=== PATIENT | female | born 1945 | race Caucasian/White ===

== ENCOUNTER 2017-04-11 05:58 | Inpatient (IN) ==
[2017-04-11] MEDS ORDERED: ONDANSETRON 4 MG/2 ML VIAL ONE (06:43)
[2017-04-11] MEDS ORDERED: DILTIAZEM 100 MG VIAL.ADD IV ONE (08:05)
[2017-04-11 10:29] LABS: INR 1.1; PT Patient Result 11.1 SECS; Partial Thromboplastin Time 28.6 SECS (0-40)
[2017-04-11 10:38] LABS: Basophils # 0.1 10*3/uL (0.0-0.2); Basophils % 0.8 % (0.0-0.8); Eosinophils % 0.2 % (0.00-10.9); Hematocrit 37.5 VOL% (35.7-47.0); Hemoglobin 12.5 GM/DL (12.0-16.0); Immature Granulocytes % 0.6 %; Immature Granulocytes Absolute 0.08 #; Lymphocytes # 1.7 10*3/uL (1.4-4.0); Lymphocytes % 12.8 % (21.3-54.2); Mean Corpuscular HGB Conc 33.3 GM/DL (32-36); Mean Corpuscular Hemoglobin 31 PG (27-34); Mean Corpuscular Volume 93.1 FL (87-102); Mean Platelet Volume 10.9 FL (9.6-12.0); Monocytes # 1.2 10*3/uL (0.11-0.8); Neutrophils % 76.6 % (38.7-73.9); Platelet Count 425 T/CUMM (130-400); Red Blood Count 4.03 MC/CUMM (3.8-5.5); Red Cell Distribution Width 13.4 % (9.3-17.3)
[2017-04-11 11:00] LABS: Thyroid Stimulating Hormone 1.25 uIU/ml (0.358-3.74); Troponin I Only 0.167 NG/ML (0.00-0.045)
[2017-04-11 12:36] LABS: Bilirubin,Total 0.7 MG/DL (0.2-1.0); Calcium 9.1 MG/DL (8.5-10.1)
[2017-04-11 12:37] LABS: Albumin 3.1 G/DL (3.4-5.0); Osmolality,Calculated 276.7 MOS/KG (273-304); Potassium 3.5 MMOL/L (3.5-5.1); Total Protein 7.2 G/DL (6.4-8.3)
[2017-04-11] MEDS ORDERED: ONDANSETRON 4 MG/2 ML VIAL IV PRN (14:32)
[2017-04-11] MEDS ORDERED: ACETAMINOPHEN 325 MG TABLET PO PRN (14:32)
[2017-04-11] MEDS: DILTIAZEM INJ 100 MG in SODIUM CHLORIDE 0.9% 100 ML IV SCH (15:27)
[2017-04-11] MEDS ORDERED: DILTIAZEM 50 MG/10 ML VIAL IV ONE (17:24)
[2017-04-11] MEDS: POTASSIUM CHLORIDE 20 MEQ TABLET PO PRN ×2 (19:03→21:33)
[2017-04-11] MEDS: ASCORBIC ACID 500 MG TABLET PO SCH (21:33)
[2017-04-11] MEDS: APIXABAN 5 MG TABLET PO SCH (21:33)
[2017-04-12 04:51] LABS: Basophils # 0.1 10*3/uL (0.0-0.2); Basophils % 0.7 % (0.0-0.8); Eosinophils # 0.1 10*3/uL (0.0-0.87); Eosinophils % 0.6 % (0.00-10.9); Hematocrit 32.1 VOL% (35.7-47.0); Hemoglobin 10.4 GM/DL (12.0-16.0); Immature Granulocytes % 0.6 %; Immature Granulocytes Absolute 0.06 #; Lymphocytes # 1.9 10*3/uL (1.4-4.0); Lymphocytes % 18.7 % (21.3-54.2); Mean Corpuscular HGB Conc 32.4 GM/DL (32-36); Mean Corpuscular Hemoglobin 31 PG (27-34); Mean Corpuscular Volume 95.5 FL (87-102); Mean Platelet Volume 11.1 FL (9.6-12.0); Monocytes # 1.2 10*3/uL (0.11-0.8); Monocytes % 11.5 % (1.7-12.7); Neutrophils # 6.8 10*3/uL (1.4-7.4); Neutrophils % 67.9 % (38.7-73.9); Platelet Count 359 T/CUMM (130-400); Red Blood Count 3.36 MC/CUMM (3.8-5.5); Red Cell Distribution Width 13.6 % (9.3-17.3); White Blood Count 10.1 T/CUMM (4-12)
[2017-04-12 05:36] LABS: Calcium 8.2 MG/DL (8.5-10.1); Magnesium 1.7 MG/DL (1.8-2.4); Osmolality,Calculated 278.4 MOS/KG (273-304); Potassium 4.7 MMOL/L (3.5-5.1); Risk Ratio 3.93; VLDL CHOLESTEROL 13.4 MG/DL
[2017-04-12] MEDS ORDERED: ASPIRIN EC 81 MG TABLET PO SCH (09:00)
[2017-04-12] MEDS ORDERED: FUROSEMIDE 40 MG TABLET PO SCH (09:00)
[2017-04-12] MEDS: ASCORBIC ACID 500 MG TABLET PO SCH ×2 (10:07→22:56)
[2017-04-12] MEDS: METOPROLOL SUCCINATE XL 100 MG TABLET PO SCH (10:07)
[2017-04-12] MEDS: PANTOPRAZOLE 40 MG TABLET PO SCH (10:08)
[2017-04-12] MEDS: APIXABAN 5 MG TABLET PO SCH ×2 (10:08→22:56)
[2017-04-12] MEDS: DILTIAZEM INJ 100 MG in SODIUM CHLORIDE 0.9% 100 ML IV SCH ×2 (10:10→16:40)
[2017-04-12] MEDS ORDERED: DIGOXIN 0.5 MG/2 ML AMP IV ONE (12:29)
[2017-04-12] MEDS: MAGNESIUM CHLORIDE 64 MG TABLET PO SCH ×2 (14:38→22:56)
[2017-04-12] MEDS ORDERED: diphenhydrAMINE CAP 25 MG CAPSULE PO ONE (21:30)
[2017-04-13] MEDS: DILTIAZEM INJ 100 MG in SODIUM CHLORIDE 0.9% 100 ML IV SCH (01:03)
[2017-04-13 06:00] LABS: Basophils # 0.1 10*3/uL (0.0-0.2); Basophils % 0.7 % (0.0-0.8); Eosinophils # 0.1 10*3/uL (0.0-0.87); Eosinophils % 1.1 % (0.00-10.9); Hematocrit 33.4 VOL% (35.7-47.0); Hemoglobin 10.9 GM/DL (12.0-16.0); Immature Granulocytes % 0.6 %; Immature Granulocytes Absolute 0.06 #; Lymphocytes % 18.2 % (21.3-54.2); Mean Corpuscular HGB Conc 32.6 GM/DL (32-36); Mean Corpuscular Hemoglobin 31 PG (27-34); Mean Corpuscular Volume 95.7 FL (87-102); Mean Platelet Volume 11.2 FL (9.6-12.0); Monocytes # 1.5 10*3/uL (0.11-0.8); Monocytes % 13.7 % (1.7-12.7); Neutrophils % 65.7 % (38.7-73.9); Platelet Count 356 T/CUMM (130-400); Red Blood Count 3.49 MC/CUMM (3.8-5.5); Red Cell Distribution Width 13.5 % (9.3-17.3); White Blood Count 10.7 T/CUMM (4-12)
[2017-04-13 06:25] LABS: Calcium 8.7 MG/DL (8.5-10.1); Magnesium 1.7 MG/DL (1.8-2.4); Potassium 4.1 MMOL/L (3.5-5.1)
[2017-04-13] MEDS ORDERED: COLCHICINE 0.6 MG TABLET PO ONE (07:57)
[2017-04-13] MEDS ORDERED: DIGOXIN 0.25 MG TABLET PO SCH ×2 (09:00→13:00)
[2017-04-13] MEDS: ASCORBIC ACID 500 MG TABLET PO SCH (12:13)
[2017-04-13] MEDS: APIXABAN 5 MG TABLET PO SCH (12:14)
[2017-04-13] MEDS: PANTOPRAZOLE 40 MG TABLET PO SCH (12:14)
[2017-04-13] MEDS: METOPROLOL SUCCINATE XL 100 MG TABLET PO SCH (12:15)
[2017-04-13] MEDS: MAGNESIUM CHLORIDE 64 MG TABLET PO SCH (12:15)
[2017-04-13 12:53] VITALS: BP 106/69
[2017-04-13] MEDS ORDERED: COLCHICINE 0.6 MG TABLET PO SCH (21:00)
== END 2017-04-13 14:45 | disposition home or self-care (01) | DRG 308 ==
LOC: N.ED 09:12 → N.EDINP 10:10 → N.TELES 14:05
PROVIDERS: ADMIT Internal Medicine; ATTEND Internal Medicine

== ENCOUNTER 2017-04-27 20:37 | Inpatient (IN) ==
[2017-04-27] MEDS ORDERED: METOCLOPRAMIDE 10 MG/2 ML VIAL IV STA (22:14)
[2017-04-27] MEDS ORDERED: SODIUM CHLORIDE 0.9% 500 ML IV STA (22:14)
[2017-04-27] MEDS ORDERED: ONDANSETRON 4 MG/2 ML VIAL IV STA (22:14)
[2017-04-27] MEDS ORDERED: PANTOPRAZOLE 40 MG VIAL IV STA (22:14)
[2017-04-27 22:20] LABS: Basophils # 0.1 10*3/uL (0.0-0.2); Basophils % 0.5 % (0.0-0.8); Eosinophils # 0.1 10*3/uL (0.0-0.87); Eosinophils % 0.3 % (0.00-10.9); Hematocrit 34.1 VOL% (35.7-47.0); Hemoglobin 11.3 GM/DL (12.0-16.0); Immature Granulocytes Absolute 0.14 #; Lymphocytes # 3.1 10*3/uL (1.4-4.0); Lymphocytes % 21.1 % (21.3-54.2); Mean Corpuscular HGB Conc 33.1 GM/DL (32-36); Mean Corpuscular Hemoglobin 30 PG (27-34); Mean Corpuscular Volume 91.2 FL (87-102); Mean Platelet Volume 12.3 FL (9.6-12.0); Monocytes % 13.7 % (1.7-12.7); Neutrophils # 9.3 10*3/uL (1.4-7.4); Neutrophils % 63.4 % (38.7-73.9); Platelet Count 418 T/CUMM (130-400); Red Blood Count 3.74 MC/CUMM (3.8-5.5); Red Cell Distribution Width 13.7 % (9.3-17.3); White Blood Count 14.7 T/CUMM (4-12)
[2017-04-27] MEDS ORDERED: ONDANSETRON 4 MG/2 ML VIAL ONE (22:20)
[2017-04-27] MEDS ORDERED: METOCLOPRAMIDE 10 MG/2 ML VIAL ONE (22:20)
[2017-04-27] MEDS ORDERED: PANTOPRAZOLE 40 MG VIAL IV ONE (22:20)
[2017-04-27 22:42] LABS: Albumin 2.9 G/DL (3.4-5.0); Bilirubin,Total 0.9 MG/DL (0.2-1.0); Calcium 9.1 MG/DL (8.5-10.1); Magnesium 1.4 MG/DL (1.8-2.4); Osmolality,Calculated 276.8 MOS/KG (273-304); Potassium 3.7 MMOL/L (3.5-5.1); Troponin I Only 0.04 NG/ML (0.00-0.045)
[2017-04-27] MEDS ORDERED: MAGNESIUM SULF RIDER 2 GM in PREMIX 1 EACH IV STA (22:52)
[2017-04-27 23:45] LABS: Apearance,Urine Slightly Hazy (Clear); Bacteria,Urine Many /HPF (Few); Bilirubin,Urine Negative (Negative); Blood, Urine Negative (Negative); Glucose,Urine (UA) Negative (Negative); Hyaline Casts,Urine 48 /LPF (0-3); Ketones,Urine 20 mg/dL (Negative); Mucus,Urine Few /LPF (Occasional); Nitrite,Urine Negative (Negative); Protein,Urine 100 MG/DL; RBC,Urine 3 /HPF (0-4); Squamous Epithelial Cell,Urine Occasional /HPF (0-10); Urine Color Amber (Yellow); Urine Specific Gravity 1.017 (1.001-1.035); WBC,Urine 3 /HPF (0-6)
[2017-04-27] MEDS ORDERED: MAGNESIUM SULF RIDER 50 ML IV ONE (23:48)
[2017-04-28] MEDS ORDERED: SODIUM CHLORIDE 0.9% 1,000 ML IV SCH (01:54)
[2017-04-28] MEDS ORDERED: ACETAMINOPHEN 325 MG TABLET PO PRN (01:54)
[2017-04-28] MEDS: SCOPOLAMINE 1.5 MG PATCH TRANSDERM SCH ×2 (02:09→11:20)
[2017-04-28 07:36] LABS: Basophils # 0.1 10*3/uL (0.0-0.2); Basophils % 0.5 % (0.0-0.8); Eosinophils # 0.1 10*3/uL (0.0-0.87); Eosinophils % 0.9 % (0.00-10.9); Hematocrit 31.3 VOL% (35.7-47.0); Hemoglobin 10.1 GM/DL (12.0-16.0); Immature Granulocytes % 0.9 %; Immature Granulocytes Absolute 0.11 #; Lymphocytes % 23.3 % (21.3-54.2); Mean Corpuscular HGB Conc 32.3 GM/DL (32-36); Mean Corpuscular Hemoglobin 30 PG (27-34); Mean Corpuscular Volume 92.3 FL (87-102); Mean Platelet Volume 11.4 FL (9.6-12.0); Monocytes # 1.8 10*3/uL (0.11-0.8); Monocytes % 14.2 % (1.7-12.7); Neutrophils # 7.6 10*3/uL (1.4-7.4); Neutrophils % 60.2 % (38.7-73.9); Platelet Count 388 T/CUMM (130-400); Red Blood Count 3.39 MC/CUMM (3.8-5.5); Red Cell Distribution Width 13.8 % (9.3-17.3); White Blood Count 12.7 T/CUMM (4-12)
[2017-04-28 08:06] LABS: Albumin 2.7 G/DL (3.4-5.0); Bilirubin,Total 1.1 MG/DL (0.2-1.0); Magnesium 2.1 MG/DL (1.8-2.4); Osmolality,Calculated 279.5 MOS/KG (273-304); Potassium 3.9 MMOL/L (3.5-5.1); Total Protein 6.2 G/DL (6.4-8.3)
[2017-04-28] MEDS: SODIUM CHLORIDE 0.9% 1,000 ML IV SCH ×2 (08:29→21:38)
[2017-04-28] MEDS: INDOMETHACIN 50 MG CAPSULE PO SCH ×3 (08:29→21:37)
[2017-04-28] MEDS: ONDANSETRON 4 MG/2 ML VIAL IV PRN (08:29)
[2017-04-28] MEDS ORDERED: PANTOPRAZOLE 40 MG TABLET PO SCH (09:00)
[2017-04-28] MEDS ORDERED: ENOXAPARIN 40 MG/0.4 ML SYRINGE SUBCUT SCH (09:00)
[2017-04-28] MEDS ORDERED: FUROSEMIDE 40 MG TABLET PO SCH (09:00)
[2017-04-28] MEDS: MAGNESIUM CHLORIDE 64 MG TABLET PO SCH ×2 (11:20→21:35)
[2017-04-28] MEDS: MEGESTROL 400 MG/10 ML UDCUP PO SCH ×2 (11:20→21:35)
[2017-04-28] MEDS: COLCHICINE 0.6 MG TABLET PO SCH ×2 (11:20→21:36)
[2017-04-28] MEDS: ASCORBIC ACID 500 MG TABLET PO SCH ×2 (11:20→21:36)
[2017-04-28] MEDS: APIXABAN 5 MG TABLET PO SCH ×2 (11:20→21:36)
[2017-04-28] MEDS: PANTOPRAZOLE 40 MG TABLET PO SCH (11:20)
[2017-04-28] MEDS: METOPROLOL SUCCINATE XL 100 MG TABLET PO SCH (11:20)
[2017-04-28] MEDS: DIGOXIN 0.25 MG TABLET PO SCH (15:46)
[2017-04-29 04:49] LABS: Basophils # 0.1 10*3/uL (0.0-0.2); Basophils % 0.6 % (0.0-0.8); Eosinophils # 0.2 10*3/uL (0.0-0.87); Eosinophils % 1.9 % (0.00-10.9); Hematocrit 28.3 VOL% (35.7-47.0); Hemoglobin 9.2 GM/DL (12.0-16.0); Immature Granulocytes % 0.9 %; Immature Granulocytes Absolute 0.09 #; Lymphocytes # 2.2 10*3/uL (1.4-4.0); Lymphocytes % 22.1 % (21.3-54.2); Mean Corpuscular HGB Conc 32.5 GM/DL (32-36); Mean Corpuscular Hemoglobin 30 PG (27-34); Mean Corpuscular Volume 91.6 FL (87-102); Mean Platelet Volume 11.6 FL (9.6-12.0); Monocytes # 1.5 10*3/uL (0.11-0.8); Monocytes % 15.4 % (1.7-12.7); Neutrophils # 5.8 10*3/uL (1.4-7.4); Neutrophils % 59.1 % (38.7-73.9); Platelet Count 335 T/CUMM (130-400); Red Blood Count 3.09 MC/CUMM (3.8-5.5); Red Cell Distribution Width 13.5 % (9.3-17.3); White Blood Count 9.9 T/CUMM (4-12)
[2017-04-29 05:07] LABS: Osmolality,Calculated 283.1 MOS/KG (273-304); Potassium 3.6 MMOL/L (3.5-5.1)
[2017-04-29] MEDS: SODIUM CHLORIDE 0.9% 1,000 ML IV SCH ×3 (05:31→21:13)
[2017-04-29] MEDS: APIXABAN 5 MG TABLET PO SCH ×2 (08:47→21:09)
[2017-04-29] MEDS: PANTOPRAZOLE 40 MG TABLET PO SCH (08:47)
[2017-04-29] MEDS: ASCORBIC ACID 500 MG TABLET PO SCH ×2 (08:47→21:11)
[2017-04-29] MEDS: METOPROLOL SUCCINATE XL 100 MG TABLET PO SCH (08:47)
[2017-04-29] MEDS: MAGNESIUM CHLORIDE 64 MG TABLET PO SCH ×2 (08:47→21:10)
[2017-04-29] MEDS: COLCHICINE 0.6 MG TABLET PO SCH ×2 (08:47→21:10)
[2017-04-29] MEDS: MEGESTROL 400 MG/10 ML UDCUP PO SCH ×2 (08:47→21:14)
[2017-04-29] MEDS: amLODIPine 2.5 MG TABLET PO SCH (08:47)
[2017-04-29] MEDS: ONDANSETRON 4 MG/2 ML VIAL IV PRN ×2 (09:20→22:15)
[2017-04-29] MEDS: DIGOXIN 0.25 MG TABLET PO SCH (15:39)
[2017-04-29] MEDS: traMADol 50 MG TABLET PO PRN (22:14)
[2017-04-29] MEDS: GABAPENTIN 100 MG CAPSULE PO PRN (22:15)
[2017-04-30 03:17] LABS: Basophils # 0.1 10*3/uL (0.0-0.2); Basophils % 0.7 % (0.0-0.8); Eosinophils # 0.4 10*3/uL (0.0-0.87); Eosinophils % 4.1 % (0.00-10.9); Hematocrit 28.4 VOL% (35.7-47.0); Hemoglobin 9.1 GM/DL (12.0-16.0); Immature Granulocytes % 0.9 %; Lymphocytes # 2.5 10*3/uL (1.4-4.0); Lymphocytes % 22.8 % (21.3-54.2); Mean Corpuscular Hemoglobin 30 PG (27-34); Mean Corpuscular Volume 92.2 FL (87-102); Mean Platelet Volume 11.7 FL (9.6-12.0); Monocytes # 1.7 10*3/uL (0.11-0.8); Monocytes % 15.4 % (1.7-12.7); Neutrophils % 56.1 % (38.7-73.9); Platelet Count 328 T/CUMM (130-400); Red Blood Count 3.08 MC/CUMM (3.8-5.5); Red Cell Distribution Width 13.8 % (9.3-17.3); White Blood Count 10.7 T/CUMM (4-12)
[2017-04-30 03:44] LABS: Calcium 7.9 MG/DL (8.5-10.1); Potassium 3.3 MMOL/L (3.5-5.1)
[2017-04-30] MEDS: SODIUM CHLORIDE 0.9% 1,000 ML IV SCH ×3 (04:28→22:02)
[2017-04-30] MEDS ORDERED: POTASSIUM CHLORIDE 20 MEQ/15 ML UDCUP PO SCH (09:00)
[2017-04-30] MEDS: MEGESTROL 400 MG/10 ML UDCUP PO SCH ×2 (12:24→22:04)
[2017-04-30] MEDS: MAGNESIUM CHLORIDE 64 MG TABLET PO SCH ×2 (12:26→22:01)
[2017-04-30] MEDS: ASCORBIC ACID 500 MG TABLET PO SCH ×2 (12:26→22:01)
[2017-04-30] MEDS: APIXABAN 5 MG TABLET PO SCH ×2 (12:27→22:00)
[2017-04-30] MEDS: amLODIPine 2.5 MG TABLET PO SCH (12:27)
[2017-04-30] MEDS: PANTOPRAZOLE 40 MG TABLET PO SCH ×2 (12:27→22:00)
[2017-04-30] MEDS: COLCHICINE 0.6 MG TABLET PO SCH ×2 (12:27→22:00)
[2017-04-30] MEDS: METOPROLOL SUCCINATE XL 100 MG TABLET PO SCH (12:27)
[2017-04-30] MEDS: DIGOXIN 0.25 MG TABLET PO SCH (13:41)
[2017-04-30] MEDS: GABAPENTIN 100 MG CAPSULE PO PRN (21:58)
[2017-04-30] MEDS: traMADol 50 MG TABLET PO PRN (21:59)
[2017-04-30] MEDS: ONDANSETRON 4 MG/2 ML VIAL IV PRN (22:21)
[2017-05-01] MEDS: SODIUM CHLORIDE 0.9% 1,000 ML IV SCH ×3 (03:59→19:25)
[2017-05-01 07:16] LABS: Calcium 8.1 MG/DL (8.5-10.1); Osmolality,Calculated 283.7 MOS/KG (273-304); Potassium 3.6 MMOL/L (3.5-5.1)
[2017-05-01] MEDS: PANTOPRAZOLE 40 MG TABLET PO SCH ×2 (08:51→21:29)
[2017-05-01] MEDS: MAGNESIUM CHLORIDE 64 MG TABLET PO SCH ×2 (08:51→21:28)
[2017-05-01] MEDS: METOPROLOL SUCCINATE XL 100 MG TABLET PO SCH (08:51)
[2017-05-01] MEDS: SCOPOLAMINE 1.5 MG PATCH TRANSDERM SCH (08:51)
[2017-05-01] MEDS: APIXABAN 5 MG TABLET PO SCH ×2 (08:51→21:27)
[2017-05-01] MEDS: ASCORBIC ACID 500 MG TABLET PO SCH ×2 (08:51→21:30)
[2017-05-01] MEDS: POTASSIUM CHLORIDE 20 MEQ/15 ML UDCUP PO SCH (08:51)
[2017-05-01] MEDS: MEGESTROL 400 MG/10 ML UDCUP PO SCH ×2 (08:51→21:29)
[2017-05-01] MEDS: COLCHICINE 0.6 MG TABLET PO SCH ×2 (08:51→21:28)
[2017-05-01] MEDS ORDERED: amLODIPine 5 MG TABLET PO SCH (09:00)
[2017-05-01] MEDS: DIGOXIN 0.25 MG TABLET PO SCH (14:45)
[2017-05-01] MEDS: GABAPENTIN 100 MG CAPSULE PO PRN (21:28)
[2017-05-01] MEDS: traMADol 50 MG TABLET PO PRN (21:29)
[2017-05-02] MEDS: SODIUM CHLORIDE 0.9% 1,000 ML IV SCH (03:48)
[2017-05-02 05:26] LABS: Basophils # 0.1 10*3/uL (0.0-0.2); Basophils % 0.8 % (0.0-0.8); Eosinophils # 0.3 10*3/uL (0.0-0.87); Eosinophils % 3.3 % (0.00-10.9); Hematocrit 30.1 VOL% (35.7-47.0); Hemoglobin 9.9 GM/DL (12.0-16.0); Immature Granulocytes % 0.9 %; Immature Granulocytes Absolute 0.08 #; Lymphocytes # 2.3 10*3/uL (1.4-4.0); Lymphocytes % 27.2 % (21.3-54.2); Mean Corpuscular HGB Conc 32.9 GM/DL (32-36); Mean Corpuscular Hemoglobin 30 PG (27-34); Mean Corpuscular Volume 90.7 FL (87-102); Mean Platelet Volume 11.2 FL (9.6-12.0); Monocytes # 1.4 10*3/uL (0.11-0.8); Monocytes % 15.8 % (1.7-12.7); Neutrophils # 4.4 10*3/uL (1.4-7.4); Platelet Count 313 T/CUMM (130-400); Red Blood Count 3.32 MC/CUMM (3.8-5.5); Red Cell Distribution Width 14.5 % (9.3-17.3); White Blood Count 8.5 T/CUMM (4-12)
[2017-05-02 05:48] LABS: Band Neutrophils 1 % (0-10); Eosinophils 1 % (0-10); Lymphocytes 33 % (20-55); Platelet Estimate Normal; Segmented Neutrophils 52 % (50-85); Total Cells Counted 100
[2017-05-02 05:53] LABS: Calcium 8.2 MG/DL (8.5-10.1); Osmolality,Calculated 286.6 MOS/KG (273-304); Potassium 3.7 MMOL/L (3.5-5.1)
[2017-05-02] MEDS ORDERED: amLODIPine 10 MG TABLET PO SCH (09:00)
[2017-05-02] MEDS ORDERED: LIDOCAINE 2% 5 ML VIAL ONE (10:49)
[2017-05-02] MEDS ORDERED: PROPOFOL 200 MG/20 ML VIAL IV ONE (10:49)
[2017-05-02 13:18] VITALS: BP 156/82
[2017-05-02] MEDS: PANTOPRAZOLE 40 MG TABLET PO SCH (13:20)
[2017-05-02] MEDS: MEGESTROL 400 MG/10 ML UDCUP PO SCH (13:20)
[2017-05-02] MEDS: MAGNESIUM CHLORIDE 64 MG TABLET PO SCH (13:20)
[2017-05-02] MEDS: COLCHICINE 0.6 MG TABLET PO SCH (13:20)
[2017-05-02] MEDS: APIXABAN 5 MG TABLET PO SCH (13:20)
[2017-05-02] MEDS: POTASSIUM CHLORIDE 20 MEQ/15 ML UDCUP PO SCH (13:20)
[2017-05-02] MEDS: ASCORBIC ACID 500 MG TABLET PO SCH (13:21)
[2017-05-02] MEDS: METOPROLOL SUCCINATE XL 100 MG TABLET PO SCH (13:21)
[2017-05-02] MEDS: DIGOXIN 0.25 MG TABLET PO SCH (14:52)
[2017-05-02] MEDS ORDERED: METOPROLOL SUCCINATE XL 50 MG TABLET PO SCH (19:00)
== END 2017-05-02 15:10 | disposition home or self-care (01) | DRG 392 ==
LOC: N.EDINP 20:37 → N.ED 20:37 → N.5E 04-28 01:30

== ENCOUNTER 2020-07-07 08:00 | Inpatient (IN) ==
[~2020-07-07 08:00] MED LIST: ACETAMINOPHEN 325 MG TABLET PO PRN; ALUMINUM/MAGNES/SIMETH MAX STR 30 ML UDCUP PO PRN; BISACODYL 5 MG TABLET PO PRN; MAGNESIUM SULF RIDER 2 GM in PREMIX 1 EACH IV PRN; MAGNESIUM SULF RIDER 4 GM in PREMIX 1 EACH IV PRN; ONDANSETRON 4 MG/2 ML VIAL IV PRN; POTASSIUM CHLORIDE 20 MEQ TABLET PO PRN; ZALEPLON 5 MG CAPSULE PO PRN; hydrALAZINE 20 MG/1 ML VIAL IV PRN
[2020-07-07] MEDS ORDERED: DILTIAZEM CD 180 MG CAPSULE PO SCH (09:00)
[2020-07-07] MEDS: FLECAINIDE 50 MG TABLET PO SCH ×2 (11:21→21:23)
[2020-07-07] MEDS: FUROSEMIDE 20 MG TABLET PO SCH ×2 (11:29→15:55)
[2020-07-07] MEDS: LOSARTAN 50 MG TABLET PO SCH ×2 (11:29→21:20)
[2020-07-07] MEDS: APIXABAN 5 MG TABLET PO SCH ×2 (11:29→21:23)
[2020-07-07] MEDS: PANTOPRAZOLE 40 MG TABLET PO SCH (11:29)
[2020-07-07] MEDS: METOPROLOL SUCCINATE XL 25 MG TABLET PO SCH (11:30)
[2020-07-07 12:17] LABS: Alanine Aminotransferase 21 U/L (13-56); Albumin 3.5 G/DL (3.4-5.0); Alkaline Phosphatase 124 U/L (45-117); Aspartate Amino Transferase 13 U/L (0-37); Bilirubin,Total < 0.39 MG/DL (0.2-1.0); Blood Urea Nitrogen 31 MG/DL (7-18); Calcium 8.8 MG/DL (8.5-10.1); Carbon Dioxide 27 MMOL/L (21-32); Estimated Glom Filtration Rate 42 ML/MIN; Glucose 105 MG/DL (74-106); Osmolality,Calculated 292.8 MOS/KG (273-304); Potassium 4.2 MMOL/L (3.5-5.1); Sodium 144 MMOL/L (136-145); Total Protein 7.3 G/DL (6.4-8.3)
[2020-07-07 12:18] LABS: Basophils # 0.1 10*3/uL (0.0-0.2); Basophils % 0.6 % (0.0-0.8); Eosinophils # 0.4 10*3/uL (0.0-0.87); Eosinophils % 3.5 % (0.00-10.9); Hematocrit 35.7 VOL% (35.7-47.0); Hemoglobin 10.9 GM/DL (12.0-16.0); Immature Granulocytes % 0.4 %; Immature Granulocytes Absolute 0.04 #; Lymphocytes # 2.8 10*3/uL (1.4-4.0); Mean Corpuscular HGB Conc 30.5 GM/DL (32-36); Mean Corpuscular Volume 92.5 FL (87-102); Mean Platelet Volume 11.8 FL (9.6-12.0); Monocytes % 9.5 % (1.7-12.7); Platelet Count 286 T/CUMM (130-400); Red Blood Count 3.86 MC/CUMM (3.8-5.5); Red Cell Distribution Width 15.2 % (9.3-17.3); White Blood Count 10.3 T/CUMM (4-12)
[2020-07-07] MEDS ORDERED: HydrOXYzine PAMOATE 25 MG CAPSULE PO PRN (13:13)
[2020-07-07] MEDS ORDERED: MELATONIN 3 MG TABLET PO PRN (13:32)
[2020-07-07] MEDS: DOXAZOSIN 1 MG TABLET PO SCH (21:23)
[2020-07-08 05:43] LABS: Basophils # 0.1 10*3/uL (0.0-0.2); Basophils % 0.6 % (0.0-0.8); Eosinophils # 0.5 10*3/uL (0.0-0.87); Eosinophils % 5.8 % (0.00-10.9); Hematocrit 31.9 VOL% (35.7-47.0); Hemoglobin 9.8 GM/DL (12.0-16.0); Immature Granulocytes % 0.4 %; Immature Granulocytes Absolute 0.03 #; Lymphocytes # 2.4 10*3/uL (1.4-4.0); Lymphocytes % 30.4 % (21.3-54.2); Mean Corpuscular HGB Conc 30.7 GM/DL (32-36); Mean Corpuscular Volume 91.4 FL (87-102); Mean Platelet Volume 12.2 FL (9.6-12.0); Monocytes % 10.8 % (1.7-12.7); Platelet Count 252 T/CUMM (130-400); Red Blood Count 3.49 MC/CUMM (3.8-5.5); Red Cell Distribution Width 15.2 % (9.3-17.3); White Blood Count 7.9 T/CUMM (4-12)
[2020-07-08 06:01] LABS: Calcium 8.9 MG/DL (8.5-10.1); Osmolality,Calculated 289.1 MOS/KG (273-304); Potassium 4.3 MMOL/L (3.5-5.1)
[2020-07-08] MEDS: FUROSEMIDE 20 MG TABLET PO SCH ×2 (08:57→15:39)
[2020-07-08] MEDS: FLECAINIDE 50 MG TABLET PO SCH ×2 (08:57→22:10)
[2020-07-08] MEDS: METOPROLOL SUCCINATE XL 25 MG TABLET PO SCH (08:58)
[2020-07-08] MEDS: APIXABAN 5 MG TABLET PO SCH ×2 (08:58→22:09)
[2020-07-08] MEDS: PANTOPRAZOLE 40 MG TABLET PO SCH (08:58)
[2020-07-08] MEDS: LOSARTAN 50 MG TABLET PO SCH ×2 (08:58→22:10)
[2020-07-08] MEDS ORDERED: DILTIAZEM CD 180 MG CAPSULE PO SCH (09:00)
[2020-07-08] MEDS: DOXAZOSIN 1 MG TABLET PO SCH (22:09)
[2020-07-09] MEDS: FLECAINIDE 50 MG TABLET PO SCH (08:04)
[2020-07-09] MEDS: PANTOPRAZOLE 40 MG TABLET PO SCH (08:04)
[2020-07-09] MEDS: METOPROLOL SUCCINATE XL 25 MG TABLET PO SCH (08:04)
[2020-07-09] MEDS: LOSARTAN 50 MG TABLET PO SCH (08:04)
[2020-07-09] MEDS: APIXABAN 5 MG TABLET PO SCH (08:04)
[2020-07-09] MEDS: FUROSEMIDE 20 MG TABLET PO SCH (08:04)
[2020-07-09] MEDS ORDERED: DILTIAZEM CD 240 MG CAPSULE PO SCH (09:00)
[2020-07-09 11:59] VITALS: BP 102/48
== END 2020-07-09 13:18 | disposition home or self-care (01) | DRG 310 ==
LOC: N.TELEN
PROVIDERS: ADMIT Internal Medicine Interventional Cardiology; ATTEND Internal Medicine Interventional Cardiology

== ENCOUNTER 2020-10-04 22:28 | Inpatient (IN) ==
[2020-10-04] MEDS ORDERED: ASPIRIN 325 MG TABLET PO STA (23:08)
[2020-10-04 23:15] LABS: Basophils # 0.1 10*3/uL (0.0-0.2); Basophils % 0.7 % (0.0-0.8); Eosinophils # 0.4 10*3/uL (0.0-0.87); Hematocrit 31.7 VOL% (35.7-47.0); Hemoglobin 9.9 GM/DL (12.0-16.0); Immature Granulocytes % 0.6 %; Immature Granulocytes Absolute 0.07 #; Lymphocytes # 2.7 10*3/uL (1.4-4.0); Lymphocytes % 25.1 % (21.3-54.2); Mean Corpuscular HGB Conc 31.2 GM/DL (32-36); Mean Corpuscular Volume 90.3 FL (87-102); Mean Platelet Volume 10.8 FL (9.6-12.0); Monocytes % 9.5 % (1.7-12.7); Neutrophils % 60.1 % (38.7-73.9); Platelet Count 337 T/CUMM (130-400); Red Blood Count 3.51 MC/CUMM (3.8-5.5); Red Cell Distribution Width 15.3 % (9.3-17.3); White Blood Count 10.9 T/CUMM (4-12)
[2020-10-04 23:35] LABS: Alanine Aminotransferase 15 U/L (13-56); Albumin 3.3 G/DL (3.4-5.0); Alkaline Phosphatase 120 U/L (45-117); Aspartate Amino Transferase 15 U/L (0-37); Bilirubin,Total < 0.39 MG/DL (0.2-1.0); Blood Urea Nitrogen 33 MG/DL (7-18); Calcium 8.9 MG/DL (8.5-10.1); Carbon Dioxide 28 MMOL/L (21-32); Estimated Glom Filtration Rate 38 ML/MIN; Glucose 103 MG/DL (74-106); Osmolality,Calculated 283.5 MOS/KG (273-304); Potassium 4.4 MMOL/L (3.5-5.1); Sodium 139 MMOL/L (136-145); Total Protein 7.2 G/DL (6.4-8.2)
[2020-10-04] MEDS ORDERED: SODIUM CHLORIDE 0.9% 500 ML IV STA (23:53)
[2020-10-05] MEDS ORDERED: DEXTROSE 50% 25 GM/50 ML VIAL IV PRN (00:29)
[2020-10-05] MEDS ORDERED: GLUCAGON 1 MG VIAL IM PRN (00:29)
[2020-10-05] MEDS ORDERED: DOCUSATE SODIUM 100 MG CAPSULE PO PRN ×2 (00:29→07:27)
[2020-10-05] MEDS ORDERED: ONDANSETRON 4 MG/2 ML VIAL IV PRN (00:29)
[2020-10-05] MEDS ORDERED: ACETAMINOPHEN 325 MG TABLET PO PRN (00:29)
[2020-10-05 06:39] LABS: Basophils # 0.1 10*3/uL (0.0-0.2); Basophils % 0.7 % (0.0-0.8); Eosinophils # 0.4 10*3/uL (0.0-0.87); Hematocrit 29.6 VOL% (35.7-47.0); Hemoglobin 9.1 GM/DL (12.0-16.0); Immature Granulocytes % 0.5 %; Immature Granulocytes Absolute 0.04 #; Lymphocytes # 2.3 10*3/uL (1.4-4.0); Lymphocytes % 30.4 % (21.3-54.2); Mean Corpuscular HGB Conc 30.7 GM/DL (32-36); Mean Platelet Volume 10.5 FL (9.6-12.0); Monocytes % 11.6 % (1.7-12.7); Neutrophils % 51.8 % (38.7-73.9); Platelet Count 283 T/CUMM (130-400); Red Blood Count 3.29 MC/CUMM (3.8-5.5); Red Cell Distribution Width 15.3 % (9.3-17.3); White Blood Count 7.4 T/CUMM (4-12)
[2020-10-05 06:59] LABS: Hypochromasia 1+; Microcytosis 1+; Platelet Estimate Adequate
[2020-10-05 07:04] LABS: Calcium 8.6 MG/DL (8.5-10.1); Osmolality,Calculated 287.3 MOS/KG (273-304)
[2020-10-05 07:26] LABS: Risk Ratio 3.24; VLDL CHOLESTEROL 12.2 MG/DL
[2020-10-05] MEDS ORDERED: PANTOPRAZOLE 40 MG TABLET PO PRN (07:27)
[2020-10-05] MEDS ORDERED: HydrOXYzine PAMOATE 25 MG CAPSULE PO PRN (08:54)
[2020-10-05] MEDS ORDERED: DOXAZOSIN 1 MG TABLET PO SCH (09:00)
[2020-10-05] MEDS ORDERED: APIXABAN 5 MG TABLET PO SCH (09:00)
[2020-10-05] MEDS: ASCORBIC ACID 500 MG TABLET PO SCH ×2 (09:54→22:30)
[2020-10-05] MEDS: LOSARTAN 50 MG TABLET PO SCH ×2 (09:54→22:30)
[2020-10-05] MEDS: METOPROLOL SUCCINATE XL 25 MG TABLET PO SCH (09:54)
[2020-10-05] MEDS: FLECAINIDE 50 MG TABLET PO SCH ×2 (09:54→22:30)
[2020-10-05] MEDS ORDERED: FUROSEMIDE 20 MG TABLET PO SCH (16:00)
[2020-10-06 05:48] LABS: Basophils # 0.1 10*3/uL (0.0-0.2); Basophils % 0.7 % (0.0-0.8); Eosinophils # 0.4 10*3/uL (0.0-0.87); Eosinophils % 4.4 % (0.00-10.9); Hematocrit 33.1 VOL% (35.7-47.0); Hemoglobin 10.1 GM/DL (12.0-16.0); Immature Granulocytes % 0.6 %; Immature Granulocytes Absolute 0.06 #; Lymphocytes % 20.4 % (21.3-54.2); Mean Corpuscular HGB Conc 30.5 GM/DL (32-36); Mean Corpuscular Volume 90.4 FL (87-102); Mean Platelet Volume 10.4 FL (9.6-12.0); Monocytes % 10.4 % (1.7-12.7); Neutrophils % 63.5 % (38.7-73.9); Platelet Count 325 T/CUMM (130-400); Red Blood Count 3.66 MC/CUMM (3.8-5.5); Red Cell Distribution Width 15.1 % (9.3-17.3); White Blood Count 9.8 T/CUMM (4-12)
[2020-10-06 06:01] LABS: Calcium 9.1 MG/DL (8.5-10.1); Osmolality,Calculated 284.1 MOS/KG (273-304); Potassium 4.3 MMOL/L (3.5-5.1)
[2020-10-06] MEDS ORDERED: ceFAZolin 1,000 MG VIAL IRRIG ONE (07:30)
[2020-10-06] MEDS ORDERED: diphenhydrAMINE CAP 25 MG CAPSULE PO ONE (07:30)
[2020-10-06] MEDS ORDERED: DIAZEPAM 5 MG TABLET PO ONE (07:30)
[2020-10-06] MEDS: ASCORBIC ACID 500 MG TABLET PO SCH ×2 (08:29→21:32)
[2020-10-06] MEDS: LOSARTAN 50 MG TABLET PO SCH ×2 (08:29→21:32)
[2020-10-06] MEDS: PANTOPRAZOLE 40 MG TABLET PO SCH ×2 (08:29→08:36)
[2020-10-06] MEDS: METOPROLOL SUCCINATE XL 25 MG TABLET PO SCH (08:29)
[2020-10-06] MEDS: FLECAINIDE 50 MG TABLET PO SCH ×2 (08:29→21:32)
[2020-10-06] MEDS ORDERED: MIDAZOLAM 2 MG/2 ML VIAL ONE ×2 (08:55→10:07)
[2020-10-06] MEDS ORDERED: LIDOCAINE 1%/EPI INJ 20 ML VIAL ONE (08:55)
[2020-10-06] MEDS ORDERED: fentaNYL 100 MCG/2 ML VIAL ONE (08:55)
[2020-10-06] MEDS ORDERED: ceFAZolin 1,000 MG VIAL ONE (08:56)
[2020-10-06] MEDS ORDERED: HEPARIN/NACL 0.9% 2 UNITS/ML 1,000 UNIT/500 ML BAG IV ONE (08:56)
[2020-10-06] MEDS ORDERED: DOXAZOSIN 2 MG TABLET PO SCH (09:00)
[2020-10-06] MEDS ORDERED: IBUPROFEN 400 MG TABLET PO PRN (10:51)
[2020-10-06] MEDS: DOXAZOSIN 1 MG TABLET PO SCH (11:25)
[2020-10-07 05:21] LABS: Basophils % 0.5 % (0.0-0.8); Eosinophils # 0.6 10*3/uL (0.0-0.87); Eosinophils % 7.7 % (0.00-10.9); Hematocrit 33.4 VOL% (35.7-47.0); Hemoglobin 10.4 GM/DL (12.0-16.0); Immature Granulocytes % 0.5 %; Immature Granulocytes Absolute 0.04 #; Lymphocytes # 1.5 10*3/uL (1.4-4.0); Lymphocytes % 20.1 % (21.3-54.2); Mean Corpuscular HGB Conc 31.1 GM/DL (32-36); Mean Corpuscular Volume 91.3 FL (87-102); Mean Platelet Volume 10.4 FL (9.6-12.0); Monocytes % 10.9 % (1.7-12.7); Neutrophils % 60.3 % (38.7-73.9); Platelet Count 294 T/CUMM (130-400); Red Blood Count 3.66 MC/CUMM (3.8-5.5); Red Cell Distribution Width 15.1 % (9.3-17.3); White Blood Count 7.5 T/CUMM (4-12)
[2020-10-07 05:36] LABS: Calcium 8.4 MG/DL (8.5-10.1); Potassium 4.4 MMOL/L (3.5-5.1)
[2020-10-07 05:43] LABS: Calcium 8.4 MG/DL (8.5-10.1); Potassium 4.6 MMOL/L (3.5-5.1)
[2020-10-07 08:04] VITALS: BP 120/43
[2020-10-07] MEDS: FLECAINIDE 50 MG TABLET PO SCH (08:51)
[2020-10-07] MEDS: PANTOPRAZOLE 40 MG TABLET PO SCH (08:51)
[2020-10-07] MEDS: LOSARTAN 50 MG TABLET PO SCH (08:51)
[2020-10-07] MEDS: METOPROLOL SUCCINATE XL 25 MG TABLET PO SCH (08:51)
[2020-10-07] MEDS: ASCORBIC ACID 500 MG TABLET PO SCH (08:51)
[2020-10-07] MEDS ORDERED: DILTIAZEM CD 240 MG CAPSULE PO SCH (09:00)
[2020-10-07] MEDS: DOXAZOSIN 1 MG TABLET PO SCH (09:03)
[2020-10-07] MEDS ORDERED: DOXAZOSIN 1 MG TABLET PO SCH (09:30)
== END 2020-10-07 11:34 | disposition home or self-care (01) | DRG 243 ==
LOC: N.ED 22:28 → N.EDINP 22:28 → SUATTDRO 10-05 00:28 → N.TELES 10-05 00:37
PROVIDERS: ADMIT Student in an Organized Health Care Education/Training Program; ATTEND Hospitalist